=== PATIENT | female | born 1975 | race Asian ===

== ENCOUNTER 2019-03-06 14:32 | Inpatient (IN) | payer MEDICAID ==
[~2019-03-06] VITALS: Ht 157.5 cm; Wt 64.8 kg
[2019-03-06 14:56] VITALS: BP 101/66; PULSE 66; RESP 18
[2019-03-06] MEDS ORDERED: PNV11TAB PO (14:57)
--- NOTE | 2019-03-06 17:55 | HP ---
Date/Time of Note Date/Time of Note DATE: 03/06/19 TIME: 17:53 OB - History Hx of Present Free Text/Dictation 29+wks GA s/p Fall on her hips : 3 Para: 1 Care: Good Care Ultrasounds: Normal mid trimester US Obstetrical Complications: None Medical Complications: None Past Family/Social History * Past Medical, Surgical, Family and Obstetric Histories reviewed from chart. OB Admission Exam Vital Signs Vital Signs Vital Signs Date Temp Pulse Resp B/P (MAP) Pulse Ox O2 O2 Flow FiO2 Time Delivery Rate 03/06/19 98.0 66 18 101/66 14:56 (78) Physical Exam Abdomen: WNL Cervical Dilatation: None Effacement: 0% Station: Ballotable Membranes: Intact Heart Rate: 140's Accelerations: Accelerations Present Decelerations: No Decelerations Varibility: Moderate Contractions on Admission: None Last 72 hours Lab Results CBC & BMP 03/06/19 15:16 OB Assessment/Plan Reason for admission: observation Other Assessment: PMH Denies PSH Denies Allergy NKDA Plan: Expectant Management Other plan: 24 hrs observation IV Hydration Close Monitoring Pain management DIAZ WEEKS M.D. Mar 06, 2019 17:55
[2019-03-06] MEDS ORDERED: ACETAMINOPHEN 325 MG TAB PO PRN (22:00)
--- NOTE | 2019-03-07 12:29 | DS ---
Date/Time of Note Date/Time of Note DATE: 03/07/19 TIME: 12:26 Obstetrical Discharge Record Final Diagnosis Final Diagnosis: not delivered Other Final Diagnosis Patient is a 43-year-old 3 para 1 at 30 weeks of gestation with estimated date of delivery May 16, 2019 Patient status post fall admitted for observation She has no complaints today She is gestational diabetic diet controlled with fasting glucose of 92 Hematology - 72 Hrs Test 03/06/19 15:16 Hematocrit 39.8 % (37.0-47.0) Hemoglobin 13.1 g/dl (12.0-16.0) Mean Corpuscular Hemoglobin 30.1 pg (29.0-33.0) Mean Corpuscular Hemoglobin Concent 32.9 g/dl (32.0-37.0) Mean Corpuscular Volume 91.5 fl (82.0-101.0) Mean Platelet Volume 9.3 fl (7.4-10.4) Platelet Count 193 10^3/UL (140-415) Red Blood Count 4.35 10^6/ul (4.20-5.40) Red Cell Distribution Width 17.3 % (11.5-14.5) H White Blood Count 11.2 10^3/ul (4.8-10.8) H Chemistry Test 03/06/19 23:05 Bedside Glucose 92 mg/dL (70-220) Blood type O+ Kleihauer-Betke negative Patient instructed to increase p.o. hydration Patient instructed to follow-up with [facility] in 1 to 2 days Condition on Discharge Physical Assessment Last Vitals: VS - Last 72 Hours, by Label Date Temp Pulse Resp B/P (MAP) Pulse Ox O2 O2 Flow FiO2 Time Delivery Rate 03/06/19 98.0 66 18 101/66 14:56 (78) Voiding: Yes Bowel Movement: Yes Breast: Soft, non-tender Fundus: Other (Gravid) Calf Tenderness: No Patient Condition: Good TERA BOWERS MD Mar 07, 2019 12:29
== END 2019-03-07 11:50 | disposition home or self-care (01) | DRG 833 ==
LOC: OBT 14:32 → L-D 14:32 → OBT 18:00
PROVIDERS: ADMIT Obstetrics & Gynecology; ATTEND Obstetrics & Gynecology
DX: O26.893 Other specified pregnancy related conditions, third trimester (principal); O09.523 Supervision of elderly multigravida, third trimester; S79.912A Unspecified injury of left hip, initial encounter; S79.911A Unspecified injury of right hip, initial encounter; W18.30XA Fall on same level, unspecified, initial encounter; Z3A.33 33 weeks gestation of pregnancy
CPT/HCPCS: 76815; 76817; 76818; 82731; 82962; 85025; 85460; 86850; 86900; 86901; G0463